=== PATIENT | male | born 1990 | race African-American/Black ===

== ENCOUNTER 2024-05-27 16:26 | Emergency (ER) | payer SELFPAY ==
[2024-05-27] MEDS ORDERED: Morphine 4 MG/ML VIAL ONE (17:36)
[2024-05-27] MEDS ORDERED: Ondansetron PF 4 MG/2 ML Vial ONE (18:04)
[2024-05-27] MEDS ORDERED: KETAMINE 100 MG/ML (5ML VIAL) ONE (18:49)
== END 2024-05-27 20:53 | disposition home or self-care (01) ==
LOC: CSHERS 16:26
DX: S62.347A Nondisplaced fracture of base of fifth metacarpal bone, left hand, initial encounter for closed fracture (principal); S62.312A Displaced fracture of base of third metacarpal bone, right hand, initial encounter for closed fracture; S62.111A Displaced fracture of triquetrum [cuneiform] bone, right wrist, initial encounter for closed fracture; S63.064A Dislocation of metacarpal (bone), proximal end of right hand, initial encounter; F17.210 Nicotine dependence, cigarettes, uncomplicated; W11.XXXA Fall on and from ladder, initial encounter; Y93.89 Activity, other specified
CPT/HCPCS: 26700; 94760; 96374; 96375; J2272; J2405